=== PATIENT | female | born 1945 ===

== ENCOUNTER 2022-11-17 07:06 | Day surgery (SDC) | payer OTHER ==
[~2022-11-17] VITALS: Ht 162.6 cm; Wt 54.4 kg
[~2022-11-17 07:06] MED LIST: CILOSTAZOL50 MG PO; MIRAPEX0.25 MG PO; PEPCID AC10 MG PO; SYNTHROID100 MCG PO; TRAZODONE HCL50 MG PO; ZESTRIL40 M1 PO; ZOLOFT50 MG PO
[2022-11-17] MEDS ORDERED: TRAM1TAB98 PO (12:57)
[2022-11-17] MEDS ORDERED: INTESTINEX680 M1 PO (12:58)
== END 2022-11-17 21:10 | disposition home or self-care (01) ==
LOC: CIR.AMB 07:06
PROVIDERS: ATTEND Surgery
DX: K62.3 Rectal prolapse (principal); K64.8 Other hemorrhoids; N81.6 Rectocele; I10 Essential (primary) hypertension; Z20.822 Contact with and (suspected) exposure to COVID-19; I73.9 Peripheral vascular disease, unspecified